=== PATIENT | female | born 1935 | race African-American/Black ===

== ENCOUNTER 2022-03-14 14:15 | Observation (INO) | payer MEDICARE ==
[~2022-03-14] VITALS: Ht 165.1 cm; Wt 98.5 kg
[2022-03-14] MEDS ORDERED: SODIUM CHLORIDE 0.9% 500ML 500 ML IV ONE (15:15)
[2022-03-14] MEDS ORDERED: ARICEPT10 MG PO (15:59)
[2022-03-14] MEDS ORDERED: AMLODIPINE BESYL5 MG PO (15:59)
[2022-03-14] MEDS ORDERED: ATORVASTATIN CA10 MG PO (16:00)
[2022-03-14] MEDS ORDERED: ASPIRIN81 MG PO (16:00)
[2022-03-14] MEDS ORDERED: FLOMAX0.4 MG PO (16:01)
[2022-03-14] MEDS ORDERED: LOSARTAN POTASS25 MG PO (16:01)
[2022-03-14] MEDS ORDERED: DETROL LA4 MG PO (16:02)
[2022-03-14 17:02] LABS: BASOPHILS % 0.1 % (0.0-1.0); HEMATOCRIT 39.1 % (34.2-44.1); HEMOGLOBIN 12.6 g/dL (12.0-16.0); LYMPHOCYTES % 13.1 % (18.0-39.1); MEAN CORPUSCULAR HEMOGLOBIN 29.6 pg (28-32); MEAN CORPUSCULAR HGB CONC 32.2 g/dL (31-35); MEAN CORPUSCULAR VOLUME 91.8 fL (81-99); MONOCYTES # (AUTO) 0.3 (0.2-0.8); MONOCYTES % 4.3 % (4.4-11.3); NEUTROPHILS # (AUTO) 6.1 (2.1-6.9); NEUTROPHILS % 82.2 % (38.7-80.0); PLATELET COUNT 119 x10e3/uL (140-360); RED BLOOD COUNT 4.26 x10e6/uL (3.6-5.1); RED CELL DISTRIBUTION WIDTH 14.9 % (11.7-14.4)
[2022-03-14 17:08] LABS: AMPHETAMINES SCREEN,URINE NEGATIVE (NEGATIVE); BENZODIAZEPINES SCREEN,URINE NEGATIVE (NEGATIVE); CLARITY,URINE CLOUDY (CLEAR); COLOR,URINE YELLOW (YELLOW); PHENCYCLIDINE SCREEN,URINE NEGATIVE (NEGATIVE)
[2022-03-14 17:09] LABS: KETONES,URINE NEGATIVE (NEGATIVE); LEUKOCYTE ESTERASE ,URINE TRACE (NEGATIVE); NITRITE,URINE NEGATIVE (NEGATIVE); PROTEIN,URINE DIPSTICK TRACE (NEGATIVE); URINE UROBILINOGEN 1 mg/dL (0.2 - 1)
[2022-03-14 17:14] LABS: INR 0.91; PROTHROMBIN TIME 13.1 seconds (11.9-14.5)
[2022-03-14 17:15] LABS: PARTIAL THROMBOPLASTIN TIME 23.3 seconds (23.8-35.5)
[2022-03-14 17:20] LABS: WBC,URINE (MAN) >50 /HPF (0-5)
[2022-03-14 17:21] LABS: B-TYPE NATRIURETIC PEPTIDE2 33.3 pg/mL (0-100)
[2022-03-14 17:21] LABS: BACTERIA,URINE MANY /HPF; EPITHELIAL CELLS,URINE MODERATE /LPF
[2022-03-14 17:22] LABS: ALANINE AMINOTRANSFERASE 10 IU/L (0-55); ALBUMIN 2.8 g/dL (3.5-5.0); ALBUMIN/GLOBULIN RATIO 0.6 (0.8-2.0); ALKALINE PHOSPHATASE 83 IU/L (40-150); ANION GAP 11.9 mmol/L (8-16); BLOOD UREA NITROGEN 12 mg/dL (7-26); BUN/CREATININE RATIO 12 (6-25); CALCIUM 8.8 mg/dL (8.4-10.2); CARBON DIOXIDE 25 mmol/L (22-29); CHLORIDE 112 mmol/L (98-107); CREATINE KINASE 24 IU/L (29-168); CREATININE, SERUM 1.03 mg/dL (0.57-1.11); GLUCOSE 113 mg/dL (74-118); MAGNESIUM 1.7 MG/DL (1.3-2.1); POTASSIUM 3.9 mmol/L (3.5-5.1); SODIUM 145 mmol/L (136-145)
[2022-03-14] MEDS: FAMOTIDINE 20 MG/2 ML VIAL IV SCH (18:00)
[2022-03-14] MEDS ORDERED: ACETAMINOPHEN 325 MG TAB PO PRN (18:00)
[2022-03-14] MEDS ORDERED: ONDANSETRON HCL INJ 2MG/ML 2ML 2 MG/ML VIAL IV PRN (18:00)
[2022-03-14] MEDS: DEXTROSE 5%/0.9% SOD CHL 1,000 ML IV SCH (18:17)
[2022-03-14 20:40] VITALS: BP 107/48
[2022-03-14 20:50] VITALS: BP 126/86
[2022-03-14] MEDS ORDERED: DONEPEZIL HCL 5 MG TAB PO SCH (22:00)
[2022-03-15 02:54] VITALS: BP 107/48
[2022-03-15 04:00] VITALS: BP 145/58
[2022-03-15] MEDS: DEXTROSE 5%/0.9% SOD CHL 1,000 ML IV SCH (04:00)
[2022-03-15 05:34] LABS: BASOPHILS % 0.3 % (0.0-1.0); EOSINOPHILS % 0.5 % (0.0-6.0); HEMATOCRIT 36.1 % (34.2-44.1); LYMPHOCYTES # (AUTO) 2.2 (1.0-3.2); LYMPHOCYTES % 28.9 % (18.0-39.1); MEAN CORPUSCULAR HEMOGLOBIN 30.1 pg (28-32); MEAN CORPUSCULAR HGB CONC 33.2 g/dL (31-35); MEAN CORPUSCULAR VOLUME 90.5 fL (81-99); MONOCYTES # (AUTO) 0.5 (0.2-0.8); MONOCYTES % 6.4 % (4.4-11.3); NEUTROPHILS # (AUTO) 4.9 (2.1-6.9); NEUTROPHILS % 63.6 % (38.7-80.0); PLATELET COUNT 211 x10e3/uL (140-360); RED BLOOD COUNT 3.99 x10e6/uL (3.6-5.1); RED CELL DISTRIBUTION WIDTH 14.8 % (11.7-14.4)
[2022-03-15] MEDS: FAMOTIDINE 20 MG/2 ML VIAL IV SCH (05:52)
[2022-03-15 06:01] LABS: ALBUMIN 2.8 g/dL (3.5-5.0); ALBUMIN/GLOBULIN RATIO 0.7 (0.8-2.0); ANION GAP 12.5 mmol/L (8-16); CALCIUM 8.8 mg/dL (8.4-10.2); CREATININE, SERUM 0.83 mg/dL (0.57-1.11); POTASSIUM 3.5 mmol/L (3.5-5.1)
[2022-03-15 06:23] LABS: CREATINE KINASE 33 IU/L (29-168)
[2022-03-15 06:35] LABS: CREATINE KINASE MB < 1.00 ng/mL (0-4.3)
[2022-03-15] MEDS ORDERED: ONDANSETRON HCL 4 MG ORAL DISINTEGRATING TAB PO PRN (08:15)
[2022-03-15 08:21] VITALS: BP 107/63
[2022-03-15 08:31] VITALS: BP 107/63
[2022-03-15 12:56] VITALS: BP 137/50
== END 2022-03-15 15:35 ==
LOC: ER 14:31 → INTOOBSV 17:55 → ERHOLD 17:55 → MED/SURG 20:40
PROVIDERS: ADMIT Internal Medicine; ATTEND Internal Medicine
DX: N39.0 Urinary tract infection, site not specified (principal); I10 Essential (primary) hypertension; F03.90 Unspecified dementia, unspecified severity, without behavioral disturbance, psychotic disturbance, mood disturbance, and anxiety; E78.5 Hyperlipidemia, unspecified; Z20.822 Contact with and (suspected) exposure to COVID-19; Z86.16 Personal history of COVID-19; F33.9 Major depressive disorder, recurrent, unspecified; Q67.0 Congenital facial asymmetry; R27.8 Other lack of coordination
CPT/HCPCS: 36415 ×2; 70450; 71045; 80053 ×2; 80307; 81001; 82140; 82550 ×2; 82553 ×2; 83735; 83880; 84484 ×2; 85025 ×2; 85610; 85730; 87086; 93005; 99251; 99285; G0378 ×2; J0696; J2543 ×2; J7040; J7042; U0002